=== PATIENT | male | born 1980 | race Caucasian/White ===

== ENCOUNTER 2017-06-12 11:10 | Emergency (ER) | payer MEDICAID ==
[2015-04-14 22:59] VITALS: BMI 23.8
[~2017-06-12 11:10] MED LIST: HYDROCODON-ACE1 EAC7 PO
== END 2017-06-12 13:12 | disposition home or self-care (01) ==
LOC: D.ER 11:10
DX: S06.0X0A Concussion without loss of consciousness, initial encounter (principal); W20.8XXA Other cause of strike by thrown, projected or falling object, initial encounter; S01.01XA Laceration without foreign body of scalp, initial encounter; D18.1 Lymphangioma, any site; Z23 Encounter for immunization; F17.200 Nicotine dependence, unspecified, uncomplicated